=== PATIENT | male | born 1975 | race Caucasian/White ===

== ENCOUNTER 2024-04-11 12:08 | Emergency (ER) | payer OTHER, SELFPAY ==
[2024-04-11 12:12] VITALS: BP 130/82
[2024-04-11 12:47] VITALS: BP 124/80
[2024-04-11 12:51] VITALS: BP 124/80; BMI 25.0
[2024-04-11 13:00] VITALS: BP 110/76
--- NOTE | 2024-04-11 13:07 | ED.GENMED ---
History of Present Illness
General
Chief Complaint: Fatigue
Source: patient
Exam Limitations: none
Time Seen by Provider: 04/11/24 12:34
Nursing documentation reviewed up to this point in time: agreed with
History of Present Illness
History of Present Illness:
The patient is a pleasant 48-year-old man who reports 6 days of fatigue, diffuse bodyaches, anorexia, and intermittent fever as high as 101. Patient reports that he was evaluated by his primary care doctor who felt that blood work should be ordered
if symptoms continued. Patient reports he went to urgent care earlier today and his blood work showed a low white blood cell count and low platelet count so he was referred to the emergency department. Patient reports a mild sore throat but
otherwise denies any significant sore throat. He denies headache. He denies neck stiffness, photophobia and rash. He denies cough. He denies nausea, vomiting and diarrhea. The patient reports he was also checked for Lyme's disease at urgent care
Past History
Past History
ED Past Medical History: None and Other
ED Past Surgical History: Other
Social History
Tobacco: Non-smoker
Alcohol: Other
Drug: None
Personal:
Living: with family
Employment: Employed
Family History
Family History: Other
Review of Systems
Review of Systems
Allergies reviewed?: Yes
All Other Systems: ROS reviewed and negative except as documented in HPI and ROS
Constitutional: Reports fever, fatigue and chills
EENT: Reports sore throat
Respiratory: Reports no symptoms
Cardiac: Reports no symptoms
ABD/GI: Reports anorexia
: Reports no symptoms
Musculoskeletal: Reports muscle stiffness
Skin: Reports no symptoms
Neurological: Reports no symptoms
Endocrine: Reports no symptoms
Hematologic/Lymphatic: Reports no symptoms
Psychiatric: Reports no symptoms
Phy Exam
Physical Exam
Physical Exam:
Physical Exam
General: no apparent distress, not acutely ill. Nontoxic, smiling, conversational
Neck: supple. no meningeal signs. normal psoterior pharynx. No pharyngeal erythema or exudate. No cervical lymphadenopathy
Heart: s1/s2 regular rate and rhythm, no murmur. equal radial pulses.
Lungs: no acute respiratory distress. clear bilaterally
Abdomen: normal bowel sounds. not tender. no CVAT
Neuro: alert and oriented. no focal neurological deficits
Skin: no rash
Psychiatric: well kept. interactive and cooperative
Extremities: no edema. no calf tenderness. negative homans. good distal pulses
Course
Orders/Labs/Results
Orders:
Orders
04/11/24 13:10
Complete Blood Count/With Diff Urgent
Laxcq-Zsxc-Zzxkxil Urgent
Monotest Urgent
04/11/24 13:16
COVID-19 Antigen Urgent
Source: Nasal Swab
Influenza A+B Rapid Molecular Urgent
OLGA LIDIA Source: Nasal Swab
Specimen Description:
Abnormal Lab Results
04/11/24
13:10
WBC 3.0 L 10^3/uL
(4.8-10.8)
MPV 12.1 H fL
(7.4-10.4)
AST 86 H U/L
(17-59)
ALT 105 H U/L
(0-50)
04/11/24 13:10
Vital Signs
Initial and Last Documented VS:
Initial Vital Signs
Temp Pulse Resp BP Pulse Ox
99.0 F 71 17 130/82 99
04/11/24 12:12 04/11/24 12:12 04/11/24 12:12 04/11/24 12:12 04/11/24 12:12
Last Documented Vital Signs
Temp Pulse Resp BP Pulse Ox
99.0 F 68 16 127/84 98
04/11/24 12:12 04/11/24 12:51 04/11/24 12:51 04/11/24 15:00 04/11/24 12:51
MDM/Problems Addressed
Differential Diagnosis Includes:
Viral illness, pneumonia
MDM/Problems Addressed:
Patient presents with acute fatigue, intermittent fever and bodyaches
*Critical Care Note
Total Time (30-74mins, 75-104mins- exclusive of procedures): Not Applicable
Data Reviewed
Review of Other/Old Records Reveals: Labs (Labs from urgent care show a white blood cell count of 2.9)
Source: patient
Patient Management
Discussion with other providers: Other (Spoke to Dr. Whitfield who recommended that the patient trend his CBC with his primary care doctor. If still low in about a month, patient should call and follow-up with hematology)
Escalation/DeEscalation of care consider admission/obs:
Patient looks very well and nontoxic. Lungs are clear. Clinically there is no sign of pneumonia or pharyngitis .there is certainly no sign of meningitis on exam
ED Attending Note
-
Portions of this chart may have been created with voice recognition software.� Occasional wrong word or��sound alike� substitutions may have occurred due to the inherent limitations of voice recognition software.
Discharge Plan
Departure
Patient Disposition: Home (Routine Discharge)
Date of Disposition: 04/11/24
Time of Disposition: 15:00
Patient with high blood pressure during this ER visit?: No
Condition: Good
Covid-19: Negative COVID-19
Discharge Problem:
Thrombocytopenia, Leukocytosis
Instructions: Neutrophil Cell Count Test, Managing increased bleeding risk, Platelet count
Referrals:
Srikanth Whitfield, [Active] - (Call in 3 weeks if lab work does not normalize)
Bob Lawrence MD [Family Provider] -
Activity Restrictions/Additional Instructions:
Your white blood cell count and platelet count is low. Please avoid any heavy exertion, biking, or contact sports given that your platelet count is low and this could increase the risk of bleeding. Please follow-up with your doctor in 1 to 2 weeks
to have your complete blood cell count rechecked. If your lab work does not normalize, you should call and see the improvement intern in about 3 to 4 weeks.
Interventions
Interventions:
*Risk Screen - Suicide Last Done: 04/11/24 12:49
*General Assessment Last Done: 04/11/24 12:49
*Neglect/Abuse Screening Last Done: 04/11/24 12:49
ED- Fall Risk Assessment Last Done: 04/11/24 12:51
*ED COVID-19 Vaccine History Last Done: 04/11/24 12:49
Discharge Date and Time
Print Language: [id number]
[2024-04-11 13:23] LABS: Hematocrit 39.7 % (39.0-52.0); Hemoglobin 13.6 g/dL (13.0-18.0); Mean Corp Hgb Conc. 34.3 g/dL (33.0-37.0); Mean Corpuscular Hgb 27.8 pg (27.0-31.0)
[2024-04-11 13:35] LABS: ALT (SGPT) 105 U/L (0-50); AST (SGOT) 86 U/L (17-59); Albumin 4.1 g/dl (3.5-5.0); Alkaline Phosphatase 108 U/L (38-126); Direct Bilirubin 0.3 mg/dl (0.0-0.4); Total Bilirubin 0.9 mg/dl (0.2-1.3); Total Protein 6.5 g/dl (6.3-8.2)
[2024-04-11 13:42] LABS: COVID-19 Antigen Negative (Negative)
[2024-04-11 14:00] VITALS: BP 114/70
[2024-04-11 14:02] LABS: Monotest Negative (Negative)
[2024-04-11 14:58] LABS: Mean Platelet Volume 12.1 fL (7.4-10.4); Platelet Count 67 10^3/uL (130-400)
[2024-04-11 15:00] VITALS: BP 127/84
[2024-04-11 15:13] LABS: Atypical Lymphocytes 17 %; Band Neutrophils 0 % (0-3); Eosinophils 1 % (0-6); Lymphocytes 42 % (20-51); Monocytes 6 % (2-9); Segmented Neutrophils 34 % (42-75)
[2024-04-11 15:14] LABS: Normal RBC Morphology Yes; Platelets Checked Yes
[2024-04-11 15:17] LABS: Total Cells Counted 100
== END 2024-04-11 15:13 | disposition home or self-care (01) ==
LOC: EMR 12:08
PROVIDERS: EMERGENCY PHYSICIAN Emergency Medicine; FAMILY PHYSICIAN Internal Medicine
DX: D69.6 Thrombocytopenia, unspecified (principal); D72.829 Elevated white blood cell count, unspecified
CPT/HCPCS: 99283; 80076; 85025; 86308; 87502; 87811